=== PATIENT | male | born 1975 | race Two or more races ===

== ENCOUNTER 2020-02-06 22:15 | Inpatient (IN) | payer OTHER ==
[~2020-02-06] VITALS: Ht 182.9 cm; Wt 86.6 kg
[~2020-02-06 22:15] MED LIST: ASPI81CH43 PO; ATOR20TA50 PO; CLOP75TA28 PO; LISI10TA6 PO; METO-169 PO
[2020-02-06 22:56] LABS: Basophils # (auto) 0.1 10 ^3/uL (0-0.2); Basophils % (auto) 1.2 % (0.0-2.0); Eosinophils # (auto) 0.2 10 ^3/uL (0-0.8); Lymphocytes % (auto) 34.3 % (10.0-50.0)
[2020-02-06 22:58] LABS: Eosinophils % (auto) 2.8 % (0.0-7.0); Hematocrit 34.3 % (41.0-53.0); Hemoglobin 12.2 g/dL (13.5-17.5); Lymphocytes # (auto) 2.2 10 ^3/uL (0.4-5.4); Mean Corpuscular Hgb Conc. 35.4 g/dL (32.0-36.0); Mean Corpuscular Volume 84.8 fL (80.0-100.0); Monocytes # (auto) 0.6 10 ^3/uL (0-1.3); Monocytes % (auto) 8.7 % (0.0-12.0); Neutrophils # (auto) 3.4 10 ^3/uL (1.6-8.6); Platelet Count (auto) 211 10^3/uL (140-450); Red Blood Cells 4.05 10^6/uL (4.5-5.90); Red Cell Distribution Width 13.2 % (11.8-14.3); White Blood Cell 6.5 10^3/uL (4.4-10.8)
[2020-02-06 23:18] LABS: Albumin 3.6 g/dL (3.4-5.0); Calcium 8.6 mg/dL (8.5-10.1); Potassium 3.4 mmol/L (3.5-5.1)
[2020-02-06 23:23] LABS: Bilirubin, Total 0.4 mg/dL (0.2-1.0); Total Protein 6.6 g/dL (6.4-8.2)
[2020-02-07] MEDS ORDERED: MORPHINE SULF INJ 2 MG/ML SYRINGE 1ML IV PRN (01:00)
[2020-02-07] MEDS ORDERED: ONDANSETRON HCL 4 MG/2 ML VIAL IV ONE ×2 (02:00)
[2020-02-07 04:16] VITALS: BP 112/63
[2020-02-07 07:11] LABS: Potassium 3.6 mmol/L (3.5-5.1)
[2020-02-07 07:22] LABS: Albumin 3.4 g/dL (3.4-5.0); Bilirubin, Total 0.3 mg/dL (0.2-1.0); Calcium 8.5 mg/dL (8.5-10.1); Total Protein 6.2 g/dL (6.4-8.2)
[2020-02-07 09:00] VITALS: BP 129/73
[2020-02-07] MEDS ORDERED: ASPirin 81 mg TAB PO ONE (10:00)
[2020-02-07] MEDS ORDERED: CLOPIDOGREL BISULFATE 75 MG TAB PO ONE (10:00)
[2020-02-07] MEDS ORDERED: LISINOPRIL 10 MG TAB PO ONE (10:00)
[2020-02-07] MEDS: HYDROcodone-ACET 10/325MG TAB PO PRN ×2 (15:59→20:49)
[2020-02-07 16:44] VITALS: BP 120/75
[2020-02-07] MEDS ORDERED: TAMSULOSIN HYDROCHLORIDE 0.4 MG CAP PO ONE (19:45)
[2020-02-07] MEDS: NITROGLYCERIN 0.4 MG SL TAB SL PRN (21:05)
[2020-02-07 22:00] VITALS: BP 136/82
[2020-02-07] MEDS ORDERED: ATORVASTATIN 20 MG TAB PO ONE (22:00)
[2020-02-08] MEDS: NITROGLYCERIN 0.4 MG SL TAB SL PRN ×2 (02:17→02:18)
[2020-02-08] MEDS: HYDROcodone-ACET 10/325MG TAB PO PRN ×2 (02:19→11:02)
[2020-02-08 05:00] VITALS: BP 120/75
[2020-02-08 06:51] LABS: Basophils # (auto) 0 10 ^3/uL (0-0.2); Basophils % (auto) 0.5 % (0.0-2.0); Eosinophils # (auto) 0.2 10 ^3/uL (0-0.8); Hemoglobin 12.8 g/dL (13.5-17.5); Lymphocytes # (auto) 1.5 10 ^3/uL (0.4-5.4); Lymphocytes % (auto) 23.8 % (10.0-50.0); Mean Corpuscular Hemoglobin 29.9 pg (28.0-32.0); Mean Corpuscular Hgb Conc. 34.7 g/dL (32.0-36.0); Mean Corpuscular Volume 86.2 fL (80.0-100.0); Monocytes # (auto) 0.5 10 ^3/uL (0-1.3); Monocytes % (auto) 7.1 % (0.0-12.0); Neutrophils # (auto) 4.3 10 ^3/uL (1.6-8.6); Neutrophils % (auto) 65.6 % (37.0-80.0); Platelet Count (auto) 200 10^3/uL (140-450); Red Blood Cells 4.29 10^6/uL (4.5-5.90); White Blood Cell 6.5 10^3/uL (4.4-10.8)
[2020-02-08 09:00] VITALS: BP 122/73
[2020-02-08] MEDS ORDERED: TAM04C PO ×2 (10:32→13:46)
[2020-02-08] MEDS ORDERED: LISINOPRIL 20 MG TAB PO SCH (10:45)
[2020-02-08] MEDS ORDERED: ASPirin 81 mg TAB PO ONE (10:45)
[2020-02-08] MEDS ORDERED: CLOPIDOGREL BISULFATE 75 MG TAB ONE (10:49)
[2020-02-08] MEDS ORDERED: CLOPIDOGREL BISULFATE 75 MG TAB PO ONE (10:52)
[2020-02-08 13:00] VITALS: BP 138/67
[2020-02-08] MEDS ORDERED: FIN5T GT (13:46)
[2020-02-08] MEDS ORDERED: TAMSULOSIN HYDROCHLORIDE 0.4 MG CAP PO SCH (18:00)
[2020-02-08] MEDS ORDERED: ATORVASTATIN 20 MG TAB PO SCH (22:00)
[2020-02-09] MEDS ORDERED: ASPirin 81 mg TAB PO SCH (10:00)
[2020-02-09] MEDS ORDERED: CLOPIDOGREL BISULFATE 75 MG TAB PO SCH (10:00)
== END 2020-02-08 16:30 | DRG 313 ==
LOC: EDBD 22:15 → EEVIPCON 22:15 → ER 22:20 → TELE 22:21 → EAST 02-07 03:56 → TELE-E-ADS 02-08 02:05
PROVIDERS: ADMIT Internal Medicine; ATTEND Internal Medicine
DX: R07.89 Other chest pain (principal); N40.0 Benign prostatic hyperplasia without lower urinary tract symptoms; I25.119 Atherosclerotic heart disease of native coronary artery with unspecified angina pectoris; Z95.1 Presence of aortocoronary bypass graft; Z79.82 Long term (current) use of aspirin; Z79.899 Other long term (current) drug therapy
CPT/HCPCS: 36415; 71045; 80053; 83880; 84484; 85025; 87081; 93005; 96374; 96375; G0378; J2405

== ENCOUNTER → 2020-02-08 | Emergency (ER) | payer OTHER ==
[~2020-02-08] VITALS: Ht 185.4 cm; Wt 86.2 kg
[~2020-02-08] MED LIST changes: +ACETAMINOPHEN 325 MG TAB PO ONE; +CARV6.2551 PO; +FIN5T GT; +LORA-154 PO; +NITR0.4S29 SL; +RANO500T PO; +TAM04C PO; +cefOXitin 2GM/100ML 100 ML IV ONE
[2020-02-08 23:23] LABS: Basophils # (auto) 0.1 10 ^3/uL (0-0.2); Basophils % (auto) 0.7 % (0.0-2.0); Eosinophils # (auto) 0.2 10 ^3/uL (0-0.8); Hematocrit 38.1 % (41.0-53.0); Hemoglobin 13.5 g/dL (13.5-17.5); Lymphocytes # (auto) 1.6 10 ^3/uL (0.4-5.4); Lymphocytes % (auto) 18.4 % (10.0-50.0); Mean Corpuscular Hemoglobin 30.3 pg (28.0-32.0); Mean Corpuscular Hgb Conc. 35.6 g/dL (32.0-36.0); Mean Corpuscular Volume 85.2 fL (80.0-100.0); Monocytes # (auto) 0.5 10 ^3/uL (0-1.3); Monocytes % (auto) 6.1 % (0.0-12.0); Neutrophils # (auto) 6.2 10 ^3/uL (1.6-8.6); Neutrophils % (auto) 72.8 % (37.0-80.0); Nucleated Red Blood Cells % 0.1 %; Platelet Count (auto) 216 10^3/uL (140-450); Red Blood Cells 4.47 10^6/uL (4.5-5.90); Red Cell Distribution Width 12.8 % (11.8-14.3); White Blood Cell 8.5 10^3/uL (4.4-10.8)
[2020-02-08 23:41] LABS: Albumin 3.8 g/dL (3.4-5.0); BUN/Creatinine Ratio 21.5; Calcium 9.2 mg/dL (8.5-10.1); Potassium 3.8 mmol/L (3.5-5.1)
[2020-02-08 23:46] LABS: Bilirubin, Total 0.5 mg/dL (0.2-1.0); Total Protein 7.2 g/dL (6.4-8.2)
[2020-02-09 02:27] VITALS: BP 111/85
== END | disposition home or self-care (01) ==
LOC: EDUNIT# 22:05 → EDBD 22:16 → EEVIPCON 22:19 → ER 22:19
DX: R07.89 Other chest pain (principal); R51 Headache; R79.89 Other specified abnormal findings of blood chemistry; I25.10 Atherosclerotic heart disease of native coronary artery without angina pectoris; E78.5 Hyperlipidemia, unspecified; I10 Essential (primary) hypertension; I25.2 Old myocardial infarction
CPT/HCPCS: 36415; 71045; 80053; 83880; 84484; 85025; 93005

== ENCOUNTER 2020-02-17 13:56 | Inpatient (IN) | payer OTHER ==
[~2020-02-17] VITALS: Ht 182.9 cm; Wt 87.1 kg
[~2020-02-17 13:56] MED LIST changes: -ACETAMINOPHEN 325 MG TAB PO ONE; -CARV6.2551 PO; -LORA-154 PO; -NITR0.4S29 SL; -RANO500T PO; -cefOXitin 2GM/100ML 100 ML IV ONE
[2020-02-17] MEDS ORDERED: MORPHINE SULFATE 4 MG/ML SYR/VIAL IV ONE (14:00)
[2020-02-17] MEDS ORDERED: ONDANSETRON HCL 4 MG/2 ML VIAL IV ONE (14:00)
[2020-02-17 14:41] LABS: Basophils # (auto) 0 10 ^3/uL (0-0.2); Basophils % (auto) 0.4 % (0.0-2.0); Eosinophils # (auto) 0.2 10 ^3/uL (0-0.8); Eosinophils % (auto) 2.6 % (0.0-7.0); Hematocrit 37.8 % (41.0-53.0); Hemoglobin 13.6 g/dL (13.5-17.5); Lymphocytes # (auto) 1.8 10 ^3/uL (0.4-5.4); Mean Corpuscular Hemoglobin 30.9 pg (28.0-32.0); Mean Corpuscular Hgb Conc. 35.8 g/dL (32.0-36.0); Mean Corpuscular Volume 86.2 fL (80.0-100.0); Monocytes # (auto) 0.4 10 ^3/uL (0-1.3); Monocytes % (auto) 7.3 % (0.0-12.0); Neutrophils # (auto) 3.5 10 ^3/uL (1.6-8.6); Neutrophils % (auto) 59.7 % (37.0-80.0); Nucleated Red Blood Cells % 0.1 %; Platelet Count (auto) 195 10^3/uL (140-450); Red Blood Cells 4.39 10^6/uL (4.5-5.90); Red Cell Distribution Width 13.6 % (11.8-14.3); White Blood Cell 5.8 10^3/uL (4.4-10.8)
[2020-02-17 14:51] LABS: Albumin 3.8 g/dL (3.4-5.0); Calcium 8.8 mg/dL (8.5-10.1); Potassium 4.5 mmol/L (3.5-5.1)
[2020-02-17 14:59] LABS: BUN/Creatinine Ratio 10.7; Bilirubin, Total 0.4 mg/dL (0.2-1.0); Total Protein 7.2 g/dL (6.4-8.2)
[2020-02-17] MEDS ORDERED: MORPHINE SULF INJ 2 MG/ML SYRINGE 1ML IV PRN (15:00)
[2020-02-17] MEDS ORDERED: NITROGLYCERIN 0.4 MG SL TAB SL PRN (15:00)
[2020-02-17 15:05] LABS: INR 0.97 (0.9-1.15); Partial Thromboplastin Time 26.1 sec (23.64-32.05)
--- NOTE | 2020-02-17 16:40 | NUR ---
Report Report received from JUSTINA Nur
--- NOTE | 2020-02-17 16:50 | NUR ---
Admit Patient admit to tele. Patient alert and oriented, no sign of distress at this time. Respirations even and unlabored, safety precautions in place. Will continue to monitor.
--- NOTE | 2020-02-17 18:40 | NUR ---
CALLED Dr. Ambriz called back, will carry out new orders.
--- NOTE | 2020-02-17 18:42 | NUR ---
paged paged to clarify orders, due to pharmacy not having ordered medication available. Will endorse to multi craft maintenance technician.
[2020-02-17] MEDS: TAMSULOSIN HYDROCHLORIDE 0.4 MG CAP PO SCH (18:59)
[2020-02-17] MEDS: HYDROcodone-ACET 10/325MG TAB PO PRN ×2 (19:12→23:15)
[2020-02-17] MEDS ORDERED: CARV6.2551 PO (19:29)
[2020-02-17] MEDS ORDERED: NITR0.4S29 SL (19:29)
--- NOTE | 2020-02-17 19:40 | NUR ---
Opening Shift Note Assumed care of patient, awake and alert x4. No S/S of distress/SOB. Complaints of pain 5/0-10, patient was recently medicated with [place]yce 10, will continue to monitor. Instructed on POC and to call for assist PRN. All questions and concerns answered, will continue to monitor for changes Q1hr and PRN.
[2020-02-17] MEDS: ATORVASTATIN 20 MG TAB PO SCH (21:34)
[2020-02-17 22:00] VITALS: BP 127/71
--- NOTE | 2020-02-18 02:25 | NUR ---
MD Castaneda at bedside. No new orders received,will continue to monitor.
[2020-02-18] MEDS: HYDROcodone-ACET 10/325MG TAB PO PRN ×5 (04:17→22:17)
[2020-02-18 05:00] VITALS: BP 111/70
--- NOTE | 2020-02-18 08:50 | NUR ---
PAIN PATIENT CO PAIN DESCRIBED GENERALIZED AND CHEST TIGHTNESS BEING RATED 6/10. VS, HR AND TELE STRIP WNL. WILL MEDICATE PER ORDER AND REASSESS ACCORDINGLY.
[2020-02-18] MEDS: CLOPIDOGREL BISULFATE 75 MG TAB PO SCH (08:54)
[2020-02-18] MEDS: ASPirin 81 mg TAB PO SCH (08:55)
[2020-02-18] MEDS: FINASTERIDE 5 MG TAB PO SCH (08:55)
[2020-02-18] MEDS: METOPROLOL SUCCINATE XL 50 MG TAB PO SCH (08:56)
[2020-02-18] MEDS: LISINOPRIL 10 MG TAB PO SCH (08:56)
[2020-02-18 09:03] VITALS: BP 114/76
--- NOTE | 2020-02-18 10:00 | NUR ---
MD MALAVE AT BED SIDE DISCUSSING POC WITH PATIENT. PATIENT VERBALIZES UNDERSTANDING. REFER TO eMAR FOR NEW ORDERS. WILL IMPLEMENT.
--- NOTE | 2020-02-18 10:00 | NUR ---
PATIENT EXPRESSES COMPLETE RELIEF OF PAIN AT THIS TIME, 0/10. WILL CONTINUE TO MONITOR.
[2020-02-18] MEDS: RANOLAZINE ER 500 MG TAB PO SCH ×2 (10:43→21:21)
[2020-02-18] MEDS: LORATADINE 10 MG TAB PO SCH (10:44)
[2020-02-18] MEDS: FLUTICASONE PROP NASAL SPR 0.05 % (50MCG) 16GM EACHNOSTRI SCH (10:50)
[2020-02-18 13:36] VITALS: BP 123/73
--- NOTE | 2020-02-18 14:10 | NUR ---
PAIN PATIENT CO PAIN DESCRIBED CHEST TIGHTNESS BEING RATED 6/10. MD AWARE. VS, HR AND TELE STRIP WNL. WILL MEDICATE PER ORDER AND REASSESS ACCORDINGLY.
--- NOTE | 2020-02-18 15:07 | NUR ---
PATIENT EXPRESSES RELIEF OF PAIN AT THIS TIME, 2/10, WHICH IS TOLERABLE FOR PATIENT. NO ADDITIONAL MEASURES NEEDED AT THIS TIME. PATIENT IS RESTING IN BED COMFORTABLY. WILL CONTINUE TO MONITOR.
[2020-02-18 17:00] VITALS: BP 124/73
[2020-02-18] MEDS: TAMSULOSIN HYDROCHLORIDE 0.4 MG CAP PO SCH (18:18)
--- NOTE | 2020-02-18 18:20 | NUR ---
PAIN PATIENT CO PAIN DESCRIBED CHEST TIGHTNESS BEING RATED 5/10. MD AWARE. VS, HR AND TELE STRIP WNL. WILL MEDICATE PER ORDER AND REASSESS ACCORDINGLY.
--- NOTE | 2020-02-18 20:09 | NUR ---
PATIENT REQUESTING NAUSEA MEDICATION NO MEDICATION AVAILABLE AT THIS TIME. WILL CONTACT MD TO REQUEST MEDICATION. WILL AWAIT CALL BACK OR ORDERS. Addendum: 02/18/20 at 2015 by MARTIN MARTINEZ RN ORDERS RECEIVED. WILL PLACE ORDER AND ADMINISTER WHEN AVAILABLE.
[2020-02-18] MEDS: ONDANSETRON HCL 4 MG/2 ML VIAL IV PRN (20:25)
[2020-02-18] MEDS: ATORVASTATIN 20 MG TAB PO SCH (21:20)
[2020-02-18] MEDS: PANTOPRAZOLE 40 MG TAB PO SCH (21:21)
[2020-02-18 22:00] VITALS: BP 125/71
[2020-02-18] MEDS ORDERED: MONTELUKAST SODIUM 10 MG TAB PO SCH (22:00)
--- NOTE | 2020-02-18 22:17 | NUR ---
PATIENT COMPLAINING OF PAIN PATIENT STATING CONTINUOUS PAIN. PATIENT GIVEN PAIN MEDICATION AT THIS TIME. PATIENT ALSO GIVEN NEW MEDICATION FOR PAIN PRIOR. WILL CONTINUE TO MONITOR.
--- NOTE | 2020-02-19 00:39 | NUR ---
PATIENT COMPLAINING OF CHEST PAIN PATIENT STATES THAT PAIN IS CONTINUOUS. MD AWARE OF CHEST PAIN. PATIENT'S V/S NORMAL WITH BP 124/78. HR 55, AND O2 AT 96% ON RA. PATIENT WILL BE PLACED ON SUPPLEMENTAL O2 FOR COMFORT. WILL MEDICATE PER PAIN PROTOCOL WHEN AVAILABLE. Addendum: 02/19/20 at 0105 by MARTIN MARTINEZ RN MD CALLED PER PROTOCOL. WILL AWAIT CALL BACK OR ORDERS.
[2020-02-19] MEDS: HYDROcodone-ACET 10/325MG TAB PO PRN ×3 (01:57→13:24)
--- NOTE | 2020-02-19 02:45 | NUR ---
MD MADE AWARE OF CHEST PAIN. NO NEW ORDERS PLACED AT THIS TIME.
--- NOTE | 2020-02-19 03:03 | NUR ---
Continuation of Care Assumed care of patient from NOC RN Lamberto for continuation of care, patient awake and alert. No S/S of distress/SOB. Bed in lowest locked position, side rails up x2, call light within reach, guards at bedside. Patient reports 6/10 pain after ordered pain medication administration by previous NOC RN. Per report and documentation form previous RN, MD aware and no new orders placed. VS, HR and telemetry reading all within normal limits. Patient made aware no pain medication available at this time and that MD aware, patient verbalized understanding. Instructed on POC and to call for assist PRN, will continue to monitor for changes Q1hr and PRN.
--- NOTE | 2020-02-19 03:03 | NUR ---
REPORT GIVEN TO ARIAS HORN. PATIENT RESTING COMFORTABLY AT THIS TIME.
[2020-02-19 05:44] VITALS: BP 124/68
--- NOTE | 2020-02-19 06:33 | NUR ---
Closing Note Patient lying in bed, eyes closed, respirations even and unlabored, appears asleep. No s/s of distress. Guards at bedside. Will continue to monitor and endorse care to dayshift RN.
--- NOTE | 2020-02-19 07:30 | NUR ---
Opening Shift Note Assumed care of patient, awake and alert x4. No S/S of distress/SOB. Complaints of pain 5/0-10, will medicate as per order and reassess accordingly. Instructed on POC and to call for assist PRN. All questions and concerns answered, will continue to monitor for changes Q1hr and PRN.
[2020-02-19] MEDS: ONDANSETRON HCL 4 MG/2 ML VIAL IV PRN (08:50)
[2020-02-19] MEDS: RANOLAZINE ER 500 MG TAB PO SCH (09:18)
[2020-02-19] MEDS: LISINOPRIL 10 MG TAB PO SCH (09:18)
[2020-02-19] MEDS: CLOPIDOGREL BISULFATE 75 MG TAB PO SCH (09:18)
[2020-02-19] MEDS: FINASTERIDE 5 MG TAB PO SCH (09:18)
[2020-02-19] MEDS: ASPirin 81 mg TAB PO SCH (09:18)
[2020-02-19] MEDS: PANTOPRAZOLE 40 MG TAB PO SCH (09:18)
[2020-02-19] MEDS: LORATADINE 10 MG TAB PO SCH (09:18)
[2020-02-19] MEDS: METOPROLOL SUCCINATE XL 50 MG TAB PO SCH (09:19)
[2020-02-19] MEDS: FLUTICASONE PROP NASAL SPR 0.05 % (50MCG) 16GM EACHNOSTRI SCH (09:19)
[2020-02-19 09:42] VITALS: BP 120/74
[2020-02-19] MEDS ORDERED: RANO500T PO ×2 (12:43→12:45)
[2020-02-19] MEDS ORDERED: LORA-154 PO (12:45)
[2020-02-19 12:59] VITALS: BP 120/74
[2020-02-19 13:00] VITALS: BP 119/75
--- NOTE | 2020-02-19 14:36 | NUR ---
Discharge instructions given as ordered. Encourage to follow up with PMD as instructed. All questions and concerns addressed. Patient verbalized understanding. Medication reconciliation form completed and copy given to patient. IV removed with catheter intact, pressure dressing applied. Telemetry unit returned to ICU. Patient taken to alf transportation with all personal belongings, accompanied by guard. No distress noted at time of departure.
== END 2020-02-19 14:33 | DRG 313 ==
LOC: ER 13:56 → EEVIPCON 13:56 → EDBD 13:56 → TELE 13:57 → TELE-E-ADS 17:01
PROVIDERS: ADMIT Internal Medicine; ATTEND Internal Medicine
DX: R07.9 Chest pain, unspecified (principal); E78.5 Hyperlipidemia, unspecified; I25.10 Atherosclerotic heart disease of native coronary artery without angina pectoris; I10 Essential (primary) hypertension; E78.00 Pure hypercholesterolemia, unspecified; Z96.651 Presence of right artificial knee joint; F17.210 Nicotine dependence, cigarettes, uncomplicated; Z95.1 Presence of aortocoronary bypass graft; Z79.899 Other long term (current) drug therapy; I25.2 Old myocardial infarction; Z95.5 Presence of coronary angioplasty implant and graft; Z82.49 Family history of ischemic heart disease and other diseases of the circulatory system; Z82.0 Family history of epilepsy and other diseases of the nervous system
CPT/HCPCS: 36415; 71045; 80053; 84484; 85025; 85610; 85730; 87081; 93005; 96374; 96375; 96376; G0378; J2405

== ENCOUNTER 2020-03-28 15:32 | Inpatient (IN) | payer OTHER ==
[~2020-03-28] VITALS: Ht 182.9 cm; Wt 81.2 kg
[~2020-03-28 15:32] MED LIST changes: +CARV6.2551 PO; +LORA-154 PO; +NITR0.4S29 SL; +RANO500T PO
[2020-03-28] MEDS ORDERED: SODIUM CHLORIDE 0.9% 1,000 ML IV ONE (16:02)
[2020-03-28 16:08] LABS: Basophils # (auto) 0.1 10 ^3/uL (0-0.2); Basophils % (auto) 0.9 % (0.0-2.0); Eosinophils # (auto) 0.2 10 ^3/uL (0-0.8); Eosinophils % (auto) 2.5 % (0.0-7.0); Lymphocytes # (auto) 1.8 10 ^3/uL (0.4-5.4); Lymphocytes % (auto) 23.8 % (10.0-50.0); Mean Corpuscular Hgb Conc. 34.7 g/dL (32.0-36.0); Mean Corpuscular Volume 86.4 fL (80.0-100.0); Monocytes # (auto) 0.5 10 ^3/uL (0-1.3); Monocytes % (auto) 6.6 % (0.0-12.0); Neutrophils # (auto) 5.1 10 ^3/uL (1.6-8.6); Neutrophils % (auto) 66.2 % (37.0-80.0); Platelet Count (auto) 255 10^3/uL (140-450); Red Blood Cells 5.32 10^6/uL (4.5-5.90); Red Cell Distribution Width 13.3 % (11.8-14.3); White Blood Cell 7.7 10^3/uL (4.4-10.8)
[2020-03-28] MEDS ORDERED: METOPROLOL TARTRATE 1MG/1ML-5ML VIAL IV ONE (16:15)
[2020-03-28] MEDS ORDERED: MORPHINE SULFATE 4 MG/ML SYR/VIAL IV PRN (16:15)
[2020-03-28] MEDS ORDERED: ONDANSETRON HCL 4 MG/2 ML VIAL IV ONE (16:15)
[2020-03-28 16:26] LABS: Alanine Aminotransferase 41 U/L (16-61); Albumin 4.2 g/dL (3.4-5.0); Anion Gap 9 (5-15); Aspartate Aminotransferase 19 U/L (15-37); Blood Urea Nitrogen 12 mg/dL (7-18); Calcium 9.5 mg/dL (8.5-10.1); Carbon Dioxide 25 mmol/L (21-32); Chloride 104 mmol/L (98-107); GFR African American 103 mL/min; GFR Non-African American 86 mL/min; Glucose 104 mg/dL (74-106); Potassium 4.1 mmol/L (3.5-5.1); Sodium 138 mmol/L (136-145)
[2020-03-28 16:31] LABS: Alkaline Phosphatase 84 U/L (45-117); Bilirubin, Total 0.6 mg/dL (0.2-1.0); Total Protein 8.2 g/dL (6.4-8.2)
[2020-03-28] MEDS ORDERED: MORPHINE SULF INJ 2 MG/ML SYRINGE 1ML IV PRN ×2 (17:45→21:30)
[2020-03-28] MEDS ORDERED: cloNIDine HCL 0.1 MG TAB PO PRN (18:30)
[2020-03-28] MEDS: IBUPROFEN 800 MG TAB PO PRN (18:51)
[2020-03-28] MEDS: cloNIDine HCL 0.1 MG TAB PO PRN (18:55)
[2020-03-28] MEDS ORDERED: IOHEXOL 350 MG/ML 100ML IJ ONE (18:57)
[2020-03-28] MEDS ORDERED: HYDROcodone-ACET 10/325MG TAB PO PRN (19:00)
[2020-03-28 20:20] VITALS: BP 126/81
[2020-03-28 21:08] VITALS: BP 121/78
[2020-03-28] MEDS: NITROGLYCERIN 0.4 MG SL TAB SL PRN ×2 (21:14→21:23)
[2020-03-28 21:23] VITALS: BP 116/71
[2020-03-28 22:00] VITALS: BP 126/81
[2020-03-28] MEDS ORDERED: ATORVASTATIN 20 MG TAB PO SCH (22:00)
[2020-03-28] MEDS: CARVEDILOL 3.125 MG TAB PO SCH (22:00)
[2020-03-28] MEDS: RANOLAZINE ER 500 MG TAB PO SCH (23:07)
[2020-03-28] MEDS: ISOSORBIDE DINITRATE 10 MG TAB PO SCH (23:08)
[2020-03-29] VITALS (8 sets, daily range): BP systolic 117–154; BP diastolic 60–100
[2020-03-29] MEDS: NITROGLYCERIN 0.4 MG SL TAB SL PRN ×3 (04:30→04:48)
[2020-03-29] MEDS ORDERED: MORPHINE SULFATE 4 MG/ML SYR/VIAL IV PRN (05:15)
[2020-03-29] MEDS: ISOSORBIDE DINITRATE 10 MG TAB PO SCH ×2 (06:43→14:24)
[2020-03-29] MEDS: CARVEDILOL 3.125 MG TAB PO SCH (10:00)
[2020-03-29] MEDS ORDERED: LISINOPRIL 20 MG TAB PO SCH (10:00)
[2020-03-29] MEDS ORDERED: CLOPIDOGREL BISULFATE 75 MG TAB PO SCH (10:00)
[2020-03-29] MEDS ORDERED: ASPirin 81 mg TAB PO SCH (10:00)
[2020-03-29] MEDS: RANOLAZINE ER 500 MG TAB PO SCH (10:45)
[2020-03-29 11:55] LABS: Urine Bacteria NONE SEEN /hpf (None Seen); Urine Blood Negative /uL (Negative); Urine Mucus FEW (None Seen); Urine Sperm PRESENT /hpf (None Seen); Urine WBC 4 /hpf (0 - 3)
[2020-03-29] MEDS: cloNIDine HCL 0.1 MG TAB PO PRN (16:58)
[2020-03-29] MEDS: IBUPROFEN 800 MG TAB PO PRN (16:58)
== END 2020-03-29 19:00 | disposition home or self-care (01) | DRG 303 ==
LOC: EDBD 15:32 → EEVIPCON 15:32 → ER 15:32 → TELE 15:33 → TELE-WESTW 18:38
PROVIDERS: ADMIT Internal Medicine; ATTEND Internal Medicine
DX: I25.110 Atherosclerotic heart disease of native coronary artery with unstable angina pectoris (principal); I10 Essential (primary) hypertension; Z95.1 Presence of aortocoronary bypass graft; I25.2 Old myocardial infarction; E78.5 Hyperlipidemia, unspecified; E78.00 Pure hypercholesterolemia, unspecified; F17.210 Nicotine dependence, cigarettes, uncomplicated; N40.0 Benign prostatic hyperplasia without lower urinary tract symptoms; Z79.02 Long term (current) use of antithrombotics/antiplatelets; Z82.0 Family history of epilepsy and other diseases of the nervous system; Z82.49 Family history of ischemic heart disease and other diseases of the circulatory system; Z79.899 Other long term (current) drug therapy; F15.10 Other stimulant abuse, uncomplicated
CPT/HCPCS: 36415; 71045; 71275; 80053; 81001; 83735; 84443; 84484; 85025; 85379; 87081; 93005; 96361; 96374; 96375; G0378; J2405

== ENCOUNTER 2020-03-29 19:51 | Emergency (ER) | payer OTHER ==
[~2020-03-29] VITALS: Ht 182.9 cm; Wt 86.2 kg
[~2020-03-29 19:51] MED LIST changes: -FIN5T GT; -LORA-154 PO; -METO-169 PO; -TAM04C PO
[2020-03-29] MEDS ORDERED: ONDANSETRON HCL 4 MG/2 ML VIAL IV ONE (20:30)
[2020-03-29] MEDS ORDERED: MORPHINE SULFATE 4 MG/ML SYR/VIAL IV ONE (20:30)
[2020-03-29] MEDS ORDERED: diphenhdrAMINE HCL 50 MG/1 ML VL IV ONE (20:45)
[2020-03-29 21:01] LABS: Basophils # (auto) 0 10 ^3/uL (0-0.2); Basophils % (auto) 0.4 % (0.0-2.0); Eosinophils # (auto) 0.2 10 ^3/uL (0-0.8); Eosinophils % (auto) 2.3 % (0.0-7.0); Hematocrit 42.2 % (41.0-53.0); Hemoglobin 14.2 g/dL (13.5-17.5); Lymphocytes # (auto) 1.5 10 ^3/uL (0.4-5.4); Lymphocytes % (auto) 22.6 % (10.0-50.0); Mean Corpuscular Hemoglobin 29.5 pg (28.0-32.0); Mean Corpuscular Hgb Conc. 33.8 g/dL (32.0-36.0); Mean Corpuscular Volume 87.3 fL (80.0-100.0); Monocytes # (auto) 0.4 10 ^3/uL (0-1.3); Monocytes % (auto) 5.6 % (0.0-12.0); Neutrophils # (auto) 4.6 10 ^3/uL (1.6-8.6); Neutrophils % (auto) 69.1 % (37.0-80.0); Nucleated Red Blood Cells % 0.1 %; Platelet Count (auto) 206 10^3/uL (140-450); Red Blood Cells 4.83 10^6/uL (4.5-5.90); Red Cell Distribution Width 13.2 % (11.8-14.3); White Blood Cell 6.7 10^3/uL (4.4-10.8)
[2020-03-29 21:15] LABS: Albumin 3.7 g/dL (3.4-5.0); Anion Gap 7 (5-15); Blood Urea Nitrogen 15 mg/dL (7-18); Calcium 8.8 mg/dL (8.5-10.1); Carbon Dioxide 25 mmol/L (21-32); Chloride 107 mmol/L (98-107); Glucose 127 mg/dL (74-106); Magnesium 2.1 mg/dL (1.6-2.6); Potassium 3.7 mmol/L (3.5-5.1); Sodium 139 mmol/L (136-145)
[2020-03-29 21:22] LABS: Alanine Aminotransferase 33 U/L (16-61); Alkaline Phosphatase 75 U/L (45-117); Aspartate Aminotransferase 15 U/L (15-37); BUN/Creatinine Ratio 17.2; Bilirubin, Total 0.5 mg/dL (0.2-1.0); GFR African American 121 mL/min; GFR Non-African American 100 mL/min; Total Protein 7.2 g/dL (6.4-8.2)
[2020-03-29 23:08] VITALS: BP 121/66
[2020-03-30] MEDS ORDERED: MECLIZINE HCL 25 MG TAB PO ONE (00:30)
== END 2020-03-30 00:38 | disposition home or self-care (01) ==
LOC: EEVIPCON 19:54 → ER 19:54
DX: R55 Syncope and collapse (principal); R42 Dizziness and giddiness; R51 Headache; R11.2 Nausea with vomiting, unspecified; E78.5 Hyperlipidemia, unspecified; I10 Essential (primary) hypertension; I25.2 Old myocardial infarction; Z95.1 Presence of aortocoronary bypass graft; Z98.61 Coronary angioplasty status
CPT/HCPCS: 36415; 70450; 80053; 83735; 84484; 85025; 93005; 96374; 96375; 99285; J1200; J2270; J2405; J8597

== ENCOUNTER 2020-05-02 16:41 | Inpatient (IN) | payer OTHER ==
[~2020-05-02] VITALS: Ht 182.9 cm; Wt 92.7 kg
[2020-05-02 17:52] LABS: Basophils # (auto) 0 10 ^3/uL (0-0.2); Basophils % (auto) 0.4 % (0.0-2.0); Eosinophils # (auto) 0.2 10 ^3/uL (0-0.8); Eosinophils % (auto) 2.7 % (0.0-7.0); Hematocrit 42.9 % (41.0-53.0); Hemoglobin 14.9 g/dL (13.5-17.5); Lymphocytes # (auto) 1.8 10 ^3/uL (0.4-5.4); Lymphocytes % (auto) 26.7 % (10.0-50.0); Mean Corpuscular Hemoglobin 30.3 pg (28.0-32.0); Mean Corpuscular Hgb Conc. 34.7 g/dL (32.0-36.0); Mean Corpuscular Volume 87.2 fL (80.0-100.0); Monocytes # (auto) 0.5 10 ^3/uL (0-1.3); Monocytes % (auto) 7.1 % (0.0-12.0); Neutrophils # (auto) 4.3 10 ^3/uL (1.6-8.6); Neutrophils % (auto) 63.1 % (37.0-80.0); Nucleated Red Blood Cells % 0.1 %; Platelet Count (auto) 205 10^3/uL (140-450); Red Blood Cells 4.92 10^6/uL (4.5-5.90); Red Cell Distribution Width 13.4 % (11.8-14.3); White Blood Cell 6.8 10^3/uL (4.4-10.8)
[2020-05-02 17:59] LABS: Albumin 3.9 g/dL (3.4-5.0); Calcium 8.6 mg/dL (8.5-10.1); Magnesium 2.5 mg/dL (1.6-2.6); Potassium 3.4 mmol/L (3.5-5.1)
[2020-05-02 18:00] LABS: INR 1.01 (0.9-1.15); Partial Thromboplastin Time 25.7 sec (23.64-32.05)
[2020-05-02 18:05] LABS: BUN/Creatinine Ratio 11.5; Bilirubin, Total 0.4 mg/dL (0.2-1.0); Total Protein 7.5 g/dL (6.4-8.2)
[2020-05-02] MEDS ORDERED: ASPirin 81 mg TAB PO ONE (20:45)
[2020-05-02] MEDS ORDERED: MORPHINE SULF INJ 2 MG/ML SYRINGE 1ML IV ONE (21:45)
[2020-05-02] MEDS ORDERED: ONDANSETRON HCL 4 MG/2 ML VIAL IV ONE (21:45)
[2020-05-02] MEDS ORDERED: MORPHINE SULF INJ 2 MG/ML SYRINGE 1ML IV PRN (23:30)
[2020-05-02] MEDS ORDERED: NITROGLYCERIN 0.4 MG SL TAB SL PRN (23:30)
[2020-05-02] MEDS ORDERED: NITROGLYCERIN 0.4 MG SL TAB SL ONE (23:30)
[2020-05-02] MEDS ORDERED: CARVEDILOL 3.125 MG TAB PO SCH (23:37)
[2020-05-02] MEDS ORDERED: ASPirin 81 mg TAB PO SCH (23:37)
[2020-05-02] MEDS ORDERED: CLOPIDOGREL BISULFATE 75 MG TAB PO SCH (23:37)
[2020-05-02] MEDS ORDERED: ATORVASTATIN 20 MG TAB PO SCH (23:38)
[2020-05-02] MEDS ORDERED: LISINOPRIL 5 MG TAB PO SCH (23:38)
[2020-05-03 03:32] VITALS: BP 147/89
[2020-05-03] MEDS: HYDROcodone-ACET 10/325MG TAB PO PRN ×3 (04:34→18:53)
[2020-05-03 05:15] VITALS: BP 147/89
--- NOTE | 2020-05-03 07:30 | NUR ---
Opening Shift Note Assumed care of patient, awake and alert. No S/S of distress/SOB or pain. Instructed on POC and to call for assist PRN, will continue to monitor for changes Q1hr and PRN. Fa ll precautions in place per safety protocol.
[2020-05-03 09:21] VITALS: BP 149/99
[2020-05-03] MEDS: CLOPIDOGREL BISULFATE 75 MG TAB PO SCH (09:40)
[2020-05-03] MEDS: ATORVASTATIN 20 MG TAB PO SCH (09:40)
[2020-05-03] MEDS: LISINOPRIL 5 MG TAB PO SCH (09:41)
[2020-05-03] MEDS: ASPirin 81 mg TAB PO SCH (09:41)
[2020-05-03] MEDS ORDERED: CARVEDILOL 3.125 MG TAB PO SCH (10:00)
[2020-05-03 10:30] LABS: Urine Bacteria FEW /hpf (None Seen); Urine Blood TRACE /uL (Negative); Urine Specific Gravity 1.014 (1.001-1.035); Urine WBC <1 /hpf (0 - 3)
--- NOTE | 2020-05-03 11:00 | NUR ---
PAIN Patient complaining of pain /10. Will administer available norco and will cont to monitor patient.
--- NOTE | 2020-05-03 12:00 | NUR ---
Hospitalist MD Ambriz at bedside, aware of patient status. No new orders received at this time, will cont to monitor patient.
[2020-05-03 13:00] VITALS: BP 122/72
[2020-05-03] MEDS ORDERED: cloNIDine HCL 0.1 MG TAB PO PRN (13:00)
[2020-05-03 17:00] VITALS: BP 161/97
--- NOTE | 2020-05-03 18:53 | NUR ---
PAIN Patient requesting pain medication for pain 06/08. Will administer available norco.
--- NOTE | 2020-05-03 19:17 | NUR ---
Opening Shift Note Assumed care of patient, awake, alert and oriented x4, on room air with even and unlabored respirations, no S/S of distress/SOB or pain. Patient able to turn in bed independently, bed in lowest locked position, side rails up x2, and call light within reach. Instructed on POC and to call for assist PRN, will continue to monitor for changes Q1hr and PRN.
[2020-05-03] MEDS: CARVEDILOL 3.125 MG TAB PO SCH (21:32)
[2020-05-03 21:57] VITALS: BP 138/99
[2020-05-04 04:58] VITALS: BP 122/73
--- NOTE | 2020-05-04 07:30 | NUR ---
Opening Shift Note Assumed care of patient, awake and alert. No S/S of distress/SOB or pain. Instructed on POC and to call for assist PRN, will continue to monitor for changes Q1hr and PRN. Fall precautions in place per safety protocol.
[2020-05-04 09:00] VITALS: BP 119/66
[2020-05-04] MEDS: CARVEDILOL 3.125 MG TAB PO SCH (09:34)
[2020-05-04] MEDS: CLOPIDOGREL BISULFATE 75 MG TAB PO SCH (09:34)
[2020-05-04] MEDS: ATORVASTATIN 20 MG TAB PO SCH (09:34)
[2020-05-04] MEDS: LISINOPRIL 5 MG TAB PO SCH (09:34)
[2020-05-04] MEDS: ASPirin 81 mg TAB PO SCH (09:34)
[2020-05-04] MEDS: HYDROcodone-ACET 10/325MG TAB PO PRN (09:39)
--- NOTE | 2020-05-04 09:40 | NUR ---
Pain Patient complaining of pain 10. Administered available norco, Will reassess and cont to monitor patient.
[2020-05-04 13:00] VITALS: BP 138/91
[2020-05-04 16:40] VITALS: BP 138/96
[2020-05-04 18:15] VITALS: BP 138/96
--- NOTE | 2020-05-04 18:38 | NUR ---
Discharge instructions given as ordered. Encourage to follow up with PMD as instructed. All questions and concerns addressed. Patient verbalized understanding. Medication reconciliation form completed and copy given to patient. IV removed with catheter intact, pressure dressing applied. Telemetry unit returned to ICU. Awaiting transportation from skilled nursing. Guards at bedside. No distress noted at this time.
== END 2020-05-04 18:30 | DRG 303 ==
LOC: EDBD 16:41 → EEVIPCON 16:41 → ER 16:41 → TELE 16:42 → TELE-WESTW 23:47
PROVIDERS: ADMIT Internal Medicine; ATTEND Internal Medicine
DX: I25.10 Atherosclerotic heart disease of native coronary artery without angina pectoris (principal); E78.5 Hyperlipidemia, unspecified; I50.9 Heart failure, unspecified; I11.0 Hypertensive heart disease with heart failure; G89.29 Other chronic pain; F41.9 Anxiety disorder, unspecified; F17.210 Nicotine dependence, cigarettes, uncomplicated; I25.2 Old myocardial infarction; Z82.0 Family history of epilepsy and other diseases of the nervous system; Z82.49 Family history of ischemic heart disease and other diseases of the circulatory system; Z95.1 Presence of aortocoronary bypass graft
CPT/HCPCS: 36415; 70450; 71045; 80053; 81001; 83735; 83880; 84443; 84484; 85025; 85610; 85730; 87081; 93005; 96374; 96375; 99291; G0378; J2405

== ENCOUNTER 2020-07-30 00:41 | Inpatient (IN) | payer OTHER ==
[~2020-07-30] VITALS: Ht 185.4 cm; Wt 95.9 kg
[~2020-07-30 00:41] MED LIST changes: +LISI-648 PO; -LISI10TA6 PO
[2020-07-30 01:37] LABS: Basophils # (auto) 0 10 ^3/uL (0-0.2); Basophils % (auto) 0.6 % (0.0-2.0); Eosinophils # (auto) 0.3 10 ^3/uL (0-0.8); Eosinophils % (auto) 3.9 % (0.0-7.0); Hematocrit 40.1 % (41.0-53.0); Hemoglobin 13.9 g/dL (13.5-17.5); Lymphocytes # (auto) 2.3 10 ^3/uL (0.4-5.4); Lymphocytes % (auto) 32.3 % (10.0-50.0); Mean Corpuscular Hemoglobin 29.8 pg (28.0-32.0); Mean Corpuscular Hgb Conc. 34.7 g/dL (32.0-36.0); Mean Corpuscular Volume 85.9 fL (80.0-100.0); Monocytes # (auto) 0.6 10 ^3/uL (0-1.3); Monocytes % (auto) 7.8 % (0.0-12.0); Neutrophils # (auto) 3.9 10 ^3/uL (1.6-8.6); Neutrophils % (auto) 55.4 % (37.0-80.0); Nucleated Red Blood Cells % 0.1 %; Platelet Count (auto) 183 10^3/uL (140-450); Red Blood Cells 4.68 10^6/uL (4.5-5.90); White Blood Cell 7.1 10^3/uL (4.4-10.8)
[2020-07-30 01:57] LABS: Albumin 3.5 g/dL (3.4-5.0); BUN/Creatinine Ratio 11.1; Calcium 8.2 mg/dL (8.5-10.1); Magnesium 2.1 mg/dL (1.6-2.6); Potassium 3.1 mmol/L (3.5-5.1)
[2020-07-30 01:58] LABS: INR 1.02 (0.9-1.15); Partial Thromboplastin Time 25.9 sec (23.0-31.2)
[2020-07-30 02:02] LABS: Bilirubin, Total 0.4 mg/dL (0.2-1.0); Total Protein 6.6 g/dL (6.4-8.2)
[2020-07-30] MEDS ORDERED: MORPHINE SULF INJ 2 MG/ML SYRINGE 1ML IV PRN (04:15)
[2020-07-30] MEDS ORDERED: TRIAMCINOLONE ACET 0.1% TOPICAL CREAM 15GM TOP PRN (04:15)
[2020-07-30] MEDS ORDERED: NITROGLYCERIN 0.4 MG SL TAB SL PRN (04:15)
[2020-07-30] MEDS: HYDROcodone-ACET 10/325MG TAB PO PRN ×4 (05:10→19:37)
--- NOTE | 2020-07-30 09:00 | NUR ---
Telemetry admit from [facility] admitted to Telemetry unit after SBAR received. Patient oriented to Shell Steven, primary RN, unit, room, bed, and unit policies regarding patient care. Patient now on continuous telemetry monitoring, tele box # [id number] and telemetry reading on arrival to unit is sinus jessica at 57. No S/S of distress/SOB. Bed locked in lowest position, side rails up x2, call light within reach. Guards at bedside. Instructed on POC and to call for assist PRN, will continue to monitor for changes Q1hr and PRN.
[2020-07-30 09:29] VITALS: BP 147/95
[2020-07-30] MEDS: RANOLAZINE ER 500 MG TAB PO SCH ×2 (10:03→22:37)
[2020-07-30] MEDS: ISOSORBIDE DINITRATE 10 MG TAB PO SCH ×2 (10:03→22:37)
[2020-07-30] MEDS: ENOXAPARIN SOD 40 MG/0.4 ML SYRINGE SC SCH (10:03)
[2020-07-30] MEDS: ASPirin 81 mg TAB PO SCH (10:03)
[2020-07-30] MEDS: NITROGLYCERIN 0.2MG/HR TOPICAL PATCH TD SCH (10:04)
[2020-07-30] MEDS: LISINOPRIL 20 MG TAB PO SCH (10:04)
[2020-07-30 10:07] VITALS: BP 147/95
[2020-07-30] MEDS ORDERED: PNEUMOCOCCAL VACC POLYS 25 MCG/0.5 ML VIAL IM ONE (10:45)
[2020-07-30] MEDS ORDERED: ISOS30TA4 PO (11:33)
[2020-07-30] MEDS ORDERED: IBUP200C95 PO (11:33)
[2020-07-30] MEDS ORDERED: NITR0.2D3 TD (11:33)
[2020-07-30 13:00] VITALS: BP 124/71
[2020-07-30] MEDS: ONDANSETRON HCL 4 MG/2 ML VIAL IV PRN (13:06)
[2020-07-30 16:20] VITALS: BP 142/77
[2020-07-30] MEDS ORDERED: ACETAMINOPHEN 325 MG TAB PO PRN (18:00)
--- NOTE | 2020-07-30 19:00 | NUR ---
Opening Shift Note Assumed care of patient, awake and alert. 1 guard on bedside. No S/S of distress/SOB or pain. Instructed on POC and to call for assist PRN, will continue to monitor for changes Q1hr and PRN.
--- NOTE | 2020-07-30 19:29 | NUR ---
COVID SWAB WALKED DOWN TO LAB
[2020-07-30 21:29] VITALS: BP 134/82
[2020-07-30] MEDS: ATORVASTATIN 20 MG TAB PO SCH (22:37)
[2020-07-31 05:17] VITALS: BP 119/75
[2020-07-31 05:38] LABS: BUN/Creatinine Ratio 13.6; Calcium 8.3 mg/dL (8.5-10.1); Potassium 3.9 mmol/L (3.5-5.1)
--- NOTE | 2020-07-31 07:30 | NUR ---
Opening Shift Note Assumed care of patient, resting with eyes closed. No S/S of distress/SOB or pain. Bed locked in lowest position, side rails up x2, call light within reach. Guards at bedside. Will continue to monitor for changes Q1hr and PRN.
[2020-07-31 08:00] VITALS: BP 145/89
[2020-07-31] MEDS: ENOXAPARIN SOD 40 MG/0.4 ML SYRINGE SC SCH (09:30)
[2020-07-31] MEDS: RANOLAZINE ER 500 MG TAB PO SCH ×2 (09:31→22:35)
[2020-07-31] MEDS: HYDROcodone-ACET 10/325MG TAB PO PRN ×4 (09:31→22:55)
[2020-07-31] MEDS: ASPirin 81 mg TAB PO SCH (09:31)
[2020-07-31] MEDS: NITROGLYCERIN 0.2MG/HR TOPICAL PATCH TD SCH (09:32)
[2020-07-31] MEDS: LISINOPRIL 20 MG TAB PO SCH (09:32)
[2020-07-31] MEDS: ISOSORBIDE DINITRATE 10 MG TAB PO SCH ×2 (09:32→22:33)
[2020-07-31] MEDS: ONDANSETRON HCL 4 MG/2 ML VIAL IV PRN (09:54)
--- NOTE | 2020-07-31 10:22 | NUR ---
EKG PERFORMED AND STRIP PLACED IN CHART READ BY MD FUENTES NO NEW INTERVENTIONS
[2020-07-31 13:00] VITALS: BP 150/69
[2020-07-31 17:06] VITALS: BP 148/85
[2020-07-31 22:00] VITALS: BP 141/89
[2020-07-31] MEDS: ATORVASTATIN 20 MG TAB PO SCH (22:34)
[2020-08-01 05:00] VITALS: BP 154/97
[2020-08-01 09:00] VITALS: BP 148/88
[2020-08-01] MEDS: ASPirin 81 mg TAB PO SCH (09:36)
[2020-08-01] MEDS: RANOLAZINE ER 500 MG TAB PO SCH (09:36)
[2020-08-01] MEDS: LISINOPRIL 20 MG TAB PO SCH (09:36)
[2020-08-01] MEDS: ISOSORBIDE DINITRATE 10 MG TAB PO SCH (09:36)
[2020-08-01] MEDS: NITROGLYCERIN 0.2MG/HR TOPICAL PATCH TD SCH (09:37)
[2020-08-01] MEDS: HYDROcodone-ACET 10/325MG TAB PO PRN (09:37)
[2020-08-01] MEDS: ENOXAPARIN SOD 40 MG/0.4 ML SYRINGE SC SCH (09:37)
[2020-08-01] MEDS ORDERED: METOPROLOL SUCCINATE XL 50 MG TAB PO SCH (10:00)
--- NOTE | 2020-08-01 10:30 | NUR ---
assessment I tried to call patient regarding his release. Per the guards it is not official yet and I cannot speak to patient. Addendum: 08/01/20 at 1555 by Betty FUNK Amended: Links added.
[2020-08-01 12:53] VITALS: BP 143/82
--- NOTE | 2020-08-01 13:00 | NUR ---
PATIENT RELEASED FROM [facility] GUARDS NO LONGER AT BEDSIDE.
[2020-08-01] MEDS ORDERED: METO-6 PO (13:08)
[2020-08-01] MEDS ORDERED: RANO500T PO (13:08)
[2020-08-01 17:00] VITALS: BP 156/88
--- NOTE | 2020-08-01 18:40 | NUR ---
Discharge home Discharge instructions given as ordered. Encourage to follow up with cage unloader in [place] as instructed. All questions and concerns addressed. Patient verbalized understanding. Medication reconciliation form completed and copy given to patient. Home medications held in Pharmacy returned to patient. Patient refused pneumonia vaccine. IV removed with catheter intact, pressure dressing applied. Telemetry unit returned to ICU. Patient taken to [facility] to wait for ride via ambulation with all personal belongings, accompanied by staff. No distress noted at time of departure.
== END 2020-08-01 18:40 | disposition home or self-care (01) | DRG 313 ==
LOC: EDBD 00:41 → EEVIPCON 00:46 → ER 00:46 → TELE 00:47 → TELE-CENTR 09:00
PROVIDERS: ADMIT Internal Medicine; ATTEND Internal Medicine
DX: R07.89 Other chest pain (principal); I50.9 Heart failure, unspecified; E78.5 Hyperlipidemia, unspecified; I25.119 Atherosclerotic heart disease of native coronary artery with unspecified angina pectoris; F15.10 Other stimulant abuse, uncomplicated; F17.210 Nicotine dependence, cigarettes, uncomplicated; I11.0 Hypertensive heart disease with heart failure; Z95.1 Presence of aortocoronary bypass graft; I25.2 Old myocardial infarction; Z79.899 Other long term (current) drug therapy; Z82.0 Family history of epilepsy and other diseases of the nervous system; Z82.49 Family history of ischemic heart disease and other diseases of the circulatory system; F41.9 Anxiety disorder, unspecified; E78.00 Pure hypercholesterolemia, unspecified; Z20.828 Contact with and (suspected) exposure to other viral communicable diseases
CPT/HCPCS: 36415; 71045; 80048; 80053; 83735; 83880; 84443; 84484; 85025; 85610; 85730; 87426; 93005; G0378; J2405